=== PATIENT | female | born 1945 | race Caucasian/White ===

== ENCOUNTER → 2016-12-14 | Outpatient (CLI) | payer MEDICARE ==
[~2016-12-14] MED LIST: LEVOTHYROXIN; MULT1CAP27
[2016-12-14 10:57] LABS: BASOPHILS % (AUTO) 0 % (0-10); EOSINOPHILS # (AUTO) 0.1 10^3/uL (0.0-0.3); EOSINOPHILS % (AUTO) 2 % (0-10); LYMPHOCYTES # (AUTO) 0.9 X 10^3 (1.0-4.0); LYMPHOCYTES % (AUTO) 21 % (12-44); MEAN CORPUSCULAR HEMOGLOBIN 31 PG (25-34); MEAN CORPUSCULAR HGB CONC 34 G/DL (32-36); MEAN CORPUSCULAR VOLUME 91 FL (80-99); MEAN PLATELET VOLUME 9.5 FL (7.4-10.4); MONOCYTES # (AUTO) 0.4 X 10^3 (0.0-1.0); MONOCYTES % (AUTO) 8 % (0-12); NEUTROPHILS % (AUTO) 69 % (42-75); PLATELET COUNT 198 10^3/uL (130-400); RED BLOOD COUNT 4.18 10^6/uL (4.35-5.85); RED CELL DISTRIBUTION WIDTH 12.6 % (10.0-14.5); WHITE BLOOD COUNT 4.4 10^3/uL (4.3-11.0)
[2016-12-14 11:22] LABS: ALANINE AMINOTRANSFERASE 25 U/L (0-55); ALBUMIN 4.2 GM/DL (3.2-4.5); AMYLASE 78 U/L (25-125); ANION GAP 10 MMOL/L (5-14); ASPARTATE AMINO TRANSFERASE 22 U/L (5-34); BILIRUBIN,TOTAL 0.7 MG/DL (0.1-1.0); BLOOD UREA NITROGEN 12 MG/DL (7-18); BUN/CREATININE RATIO 14; CALCIUM 9.7 MG/DL (8.5-10.1); CARBON DIOXIDE 26 MMOL/L (21-32); CHLORIDE 106 MMOL/L (98-107); CREATININE SERUM 0.83 MG/DL (0.60-1.30); GFR ESTIMATED > 60; GLUCOSE 106 MG/DL (70-105); LIPASE 18 U/L (8-78); POTASSIUM 3.9 MMOL/L (3.6-5.0); SODIUM 142 MMOL/L (135-145); TOTAL PROTEIN 7.5 GM/DL (6.4-8.2)
== END ==
LOC: LAB 10:45
PROVIDERS: ATTEND Nurse Practitioner Family
DX: R10.11 Right upper quadrant pain (principal); R10.31 Right lower quadrant pain
CPT/HCPCS: 36415; 80053; 82150; 83690; 85025

== ENCOUNTER → 2016-12-16 | Outpatient (CLI) | payer MEDICARE ==
--- NOTE | 2016-12-16 12:11 | Diagnostic Imaging Report ---
PROCEDURE: US Gallbladder. TECHNIQUE: Multiple real-time grayscale images were obtained over the right upper quadrant in various projections. INDICATION: Right upper quadrant pain. FINDINGS: The visualized portions of the pancreas appear unremarkable. The liver is fairly homogeneous with no focal lesion seen. Hepatopetal flow in the portal vein is seen. The CBD is dilated measuring 8 mm in caliber. No intrahepatic biliary dilatation is seen. The gallbladder demonstrates no stones or wall thickening. The right kidney is 10.5 cm in length with no hydronephrosis or focal lesion. No significant free fluid in the upper right abdomen is seen. IMPRESSION: Minimal dilatation of the CBD without obvious intrahepatic biliary dilatation. If there is suggestion of an obstructive process clinically, then further evaluation with MRCP could be considered. Dictated by: Dictated on workstation # [id number]
== END ==
LOC: RAD 08:23
PROVIDERS: ATTEND Nurse Practitioner Family
DX: R10.11 Right upper quadrant pain (principal)
CPT/HCPCS: 76705

== ENCOUNTER → 2017-08-28 | Outpatient (CLI) | payer MEDICARE ==
--- NOTE | 2017-08-28 15:25 | Diagnostic Imaging Report ---
PATIENT HISTORY: Chronic pain of the back, rt hip, rt knee, osteoarthritis. TECHNIQUE: Two views of the right hip. COMPARISON: None. FINDINGS: No acute fracture or dislocation is seen in the right hip. There are moderate degenerative changes in the right hip joint. There is enthesopathy of the greater trochanter. Mild calcific atherosclerosis is noted. IMPRESSION: Moderate degenerative changes in the right hip with no acute osseous abnormality seen. Dictated by: Dictated on workstation # [id number]
--- NOTE | 2017-08-28 15:28 | Diagnostic Imaging Report ---
Indication: Low back pain, history of multiple falls. Discussion: Three views of the lumbosacral spine were obtained. Advanced degenerative disc disease is noted diffusely. Age-indeterminate compression fracture involving the superior endplate of the L4 vertebral body, mild. No retropulsion. This could be further evaluated with MRI or nuclear medicine bone scan as clinically indicated. Advanced facet arthropathy is noted in the lower lumbar spine. Soft tissues are unremarkable. Impression: Age-indeterminate L4 compression fracture. Dictated by: Dictated on workstation # [id number]
--- NOTE | 2017-08-28 15:31 | Diagnostic Imaging Report ---
PATIENT HISTORY: Chronic pain of the back, rt hip, rt knee, osteoarthritis. TECHNIQUE: Three views of the right knee. COMPARISON: None. FINDINGS: No acute fracture or dislocation is seen in the right knee. There are moderate degenerative changes in the medial and patellofemoral compartments, and mild in the lateral compartment. There is chondrocalcinosis. There is minimal varus angulation of the tibia with respect to the femur. A minimal right knee joint effusion is present. IMPRESSION: Moderate degenerative changes in the right knee, most notably in the medial compartment. Minimal right knee joint effusion. Dictated by: Dictated on workstation # [id number]
== END ==
LOC: RAD 14:34
PROVIDERS: ATTEND Nurse Practitioner Family
DX: S32.049A Unspecified fracture of fourth lumbar vertebra, initial encounter for closed fracture (principal); M16.11 Unilateral primary osteoarthritis, right hip; M17.11 Unilateral primary osteoarthritis, right knee; Z91.81 History of falling
CPT/HCPCS: 72100; 73502; 73562